=== PATIENT | female | born 1960 | race Caucasian/White ===

== ENCOUNTER 2021-11-24 08:34 | Outpatient (CLI) | payer BC | END 2021-11-24 08:35 | disposition home or self-care (01) | LOC: CSHLAB 08:34 | PROVIDERS: ATTEND Internal Medicine Pulmonary Disease | DX: Z20.822 Contact with and (suspected) exposure to COVID-19 (principal); I27.20 Pulmonary hypertension, unspecified | CPT/HCPCS: 87811 ==

== ENCOUNTER 2021-11-30 10:24 | Outpatient (CLI) | payer BC ==
[2021-11-30 12:10] LABS: ALV-art Gradient 1.905 mmHg (0-20); Actual Bicarbonate (HCO3a) 22.7 mEq/L (22-28); Base Excess (BEa) 0.5 mEq/L (-2.0 to +3.0); CO2 Tension 30.1 mmHg (35.0-45.0); Calcium, Ionized (arterial) 1.17 mmol/L (1.12-1.30); Carboxyhemoglobin (COHb) 0.7 gm% (0.0-3.0); Hemoglobin (Hb) 15.3 g/dL (12.0-16.0); O2 Tension (PaO2), arterial 110.2 mmHg (> 80.0); Potassium - ABG Lab 4.1 mmol/L (3.70-5.30); Puncture Site RRA
== END 2021-11-30 10:25 | disposition home or self-care (01) ==
LOC: CSHCP 10:24
PROVIDERS: ATTEND Internal Medicine Pulmonary Disease
DX: I27.20 Pulmonary hypertension, unspecified (principal)
CPT/HCPCS: 36600; 82805; 94060; 94726; 94729; 94760